=== PATIENT | female | born 1980 | race Caucasian/White ===

== ENCOUNTER → 2018-11-19 08:04 | Outpatient (CLI) | payer OTHER, MEDICAID, SELFPAY | PROVIDERS: PCP Family Medicine; Visit Provider Physician Assistant | DX: R30.0 Dysuria (principal) | CPT/HCPCS: 87077; 87086; 87186 ==

== ENCOUNTER → 2019-11-20 11:43 | Outpatient (CLI) | payer OTHER, MEDICAID, SELFPAY | PROVIDERS: PCP Family Medicine; Visit Provider Physician Assistant | DX: J02.9 Acute pharyngitis, unspecified (principal); Z20.818 Contact with and (suspected) exposure to other bacterial communicable diseases | CPT/HCPCS: 87070 ==

== ENCOUNTER 2020-08-27 17:37 | Emergency (ER) | payer OTHER, MEDICAID, SELFPAY ==
[2020-08-27 17:45] VITALS: BP 130/60; PULSE 90; RESP 16; TEMP 36.1; O2SAT 97; BMI 23.3
[2020-08-27] MEDS: IBUPROFEN 400 MG TABLET PO (18:13)
[2020-08-27] MEDS: ACETAMINOPHEN 325 MG TABLET 650 MG PO (18:13)
--- NOTE | 2020-08-27 18:37 | ED_ITS ---
HPI - Wound/Laceration <CHARLOTTE Valenzuela - Last Filed: 08/27/20 19:00> General Chief Complaint: Wound/Laceration Stated Complaint: laceration to pinky finger left hand Time Seen by Provider: 08/27/20 17:44 Source: patient Mode of arrival: Ambulatory Limitations: no limitations History of Present Illness HPI narrative: This is a 40-year-old female, smoker, who has no pertinent past medical history presents to ED with chief complain of laceration from a clean glass on left little finger on dorsal aspect which happened 20 minutes ago. Patient reports last tetanus immunization is last than 5 years ago. Patient reports severe discomfort from a laceration. She reports intact sensation and is able to flex and extend affected finger but with discomfort. 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 Related Data Previous Rx's Medication Instructions Recorded beclomethasone dipropionate [Qvar] 1 puff INH BID #1 inh 05/02/16 sumatriptan succinate [Imitrex] 50 mg PO QDAYP PRN #7 tab 07/04/16 albuterol sulfate [Ventolin HFA] 0 puff INH SEE INSTRUCTIONS PRN #1 07/28/16 inh gabapentin [Neurontin] 300 mg PO TID #90 cap 03/05/17 amoxicillin 875 mg-potassium 1 tab PO BID #20 tab 11/20/19 clavulanate 125 mg tablet benzonatate 100 mg capsule 100 mg PO BID PRN #14 cap 11/20/19 Allergies Allergy/AdvReac Type Severity Reaction Status Date / Time No Known Drug Allergies Allergy Verified 08/27/20 17:52 Review of Systems <CHARLOTTE Valenzuela - Last Filed: 08/27/20 19:00> Review of Systems Narrative: General: Denies fever, chills, fatigue, malaise, sweats. Respiratory: Denies dyspnea, cough, wheezing, hemoptysis, sputum. Cardiovascular: Denies chest pain, palpitations, orthopnea, edema. Gastrointestinal: Denies nausea, vomiting, abdominal pain, diarrhea, constipation, melena. Musculoskeletal: Denies weakness, joint pain or bony pain. Skin: See HPI Patient History <CHARLOTTE Valenzuela - Last Filed: 08/27/20 19:00> Medical History Sinusitis Surgical History Status post appendectomy Status post ovarian cystectomy Status post tubal ligation (06/20/08) Family History Child Age: 22 Asthma Environmental allergies Child Age: 18 Depression Eczema Child Age: 11 Asthma Eczema Father Age: 59 Hypertension High cholesterol Mother Age: 58 Heart disease Hypertension High cholesterol Social History Smoking Status: Current every day smoker Smoking Status: Current every day smoker alcohol intake frequency: a few times a week Substance Use Type: does not use Exam <CHARLOTTE Valenzuela - Last Filed: 08/27/20 19:00> Narrative Exam Narrative: General appearance: well developed, well nourished, in moderate distress from pain and anxious. Head: normocephalic, atraumatic, no scalp lesions, non-tender. ENT: Hearing grossly intact. Airway patent. Neck/Thyroid: neck supple, full range of motion, no visible masses or meningeal signs. No JVD, non-tender without lymphadenopathy. Skin: 1.5 cm laceration to dorsal aspect left little finger in proximal to middle phalanx. Warm and dry and appropriate color for ethnicity. Heart: no clubbing, no cyanosis, no edema. Lungs: Breathing even and unlabored. No stridor. No accessory muscles used. Able to speak in full sentences. Initial Vital Signs Initial Vital Signs: Vital Signs Temperature 97 F L 08/27/20 17:45 Pulse Rate 90 08/27/20 17:45 Respiratory Rate 16 08/27/20 17:45 Blood Pressure 130/60 08/27/20 17:45 Pulse Oximetry 97 08/27/20 17:45 Extrem Left upper extremity: hand (Little finger laceration on dorsal aspect) Details: abnormal to inspection, neuromotor exam normal, neurosensory exam normal, tendon exam normal, tenderness, vascular exam Details: radial pulse present and normal capillary refill, normal ROM of fingers, no swelling and laceration; no foreign bodies and no puncture wound <Dione Aquino DO - Last Filed: 08/28/20 00:54> Initial Vital Signs Initial Vital Signs: Vital Signs Temperature 97 F L 08/27/20 17:45 Pulse Rate 90 08/27/20 17:45 Respiratory Rate 16 08/27/20 17:45 Blood Pressure 130/60 08/27/20 17:45 Pulse Oximetry 97 08/27/20 17:45 Procedures <CHARLOTTE Valenzuela - Last Filed: 08/27/20 19:00> Laceration Repair Laceration 1: Site: hand (Finger, little) Side (If applicable): left Size (cm): 1.5 Description: linear Pre-repair: wound explored and irrigated extensively Skin layer closed with: dermabond Orthopedic Splinting/Casting Injury #1: Side: left Upper Extremity Injury Location: finger Upper Extremity Immobilizer: aluminum form splint Post splinting neuro exam: intact Post splinting vascular exam: intact Placed by: Provider Scores <CHARLOTTE Valenzuela - Last Filed: 08/27/20 19:00> GCS [place] coma scale eye opening: Spontaneous [place] coma scale verbal response: Orientated [place] coma scale motor response: Obey commands [place] coma scale total score: 15 Course <CHARLOTTE Valenzuela - Last Filed: 08/27/20 19:00> Orders Ordered: Discontinued Medications Acetaminophen (Acetaminophen 325 Mg Tablet) 650 mg PO NOW ONE Stop: 08/27/20 17:57 Last Admin: 08/27/20 18:13 Dose: 650 mg Documented by: SMILEY Bacitracin (Bacitracin Oint 0.9 Gm Pckt) 1 applic TOP NOW ONE Stop: 08/27/20 18:20 Last Admin: 08/27/20 18:25 Dose: Not Given Documented by: SMILEY Ibuprofen (Ibuprofen 400 Mg Tablet) 400 mg PO NOW ONE Stop: 08/27/20 17:57 Last Admin: 08/27/20 18:13 Dose: 400 mg Documented by: SMILEY Lidocaine/Sodium Bicarbonate (Lido 1%/Sod Bicarb 8.4% (10ml) 10 Ml Syringe) 10 ml INJ NOW ONE Stop: 08/27/20 18:20 Last Admin: 08/27/20 18:25 Dose: Not Given Documented by: SMILEY Vital Signs Vital signs: Vital Signs - 8 hr 08/27/20 17:45 Temperature 97 F L Pulse Rate 90 Respiratory Rate 16 Blood Pressure 130/60 Pulse Oximetry 97 <Dione Aquino DO - Last Filed: 08/28/20 00:54> Orders Ordered: Discontinued Medications Acetaminophen (Acetaminophen 325 Mg Tablet) 650 mg PO NOW ONE Stop: 08/27/20 17:57 Last Admin: 08/27/20 18:13 Dose: 650 mg Documented by: SMILEY Bacitracin (Bacitracin Oint 0.9 Gm Pckt) 1 applic TOP NOW ONE Stop: 08/27/20 18:20 Last Admin: 08/27/20 18:25 Dose: Not Given Documented by: SMILEY Ibuprofen (Ibuprofen 400 Mg Tablet) 400 mg PO NOW ONE Stop: 08/27/20 17:57 Last Admin: 08/27/20 18:13 Dose: 400 mg Documented by: SMILEY Lidocaine/Sodium Bicarbonate (Lido 1%/Sod Bicarb 8.4% (10ml) 10 Ml Syringe) 10 ml INJ NOW ONE Stop: 08/27/20 18:20 Last Admin: 08/27/20 18:25 Dose: Not Given Documented by: SMILEY Vital Signs Vital signs: Vital Signs - 8 hr 08/27/20 17:45 Temperature 97 F L Pulse Rate 90 Respiratory Rate 16 Blood Pressure 130/60 Pulse Oximetry 97 MDM - Wound/Laceration <CHARLOTTE Valenzuela - Last Filed: 08/27/20 19:00> Differential Diagnosis Differential diagnosis: Likely laceration Medical Records Attestation: I reviewed the patient's medical records. MDM Narrative Medical decision making narrative: Is a 40-year-old female who presents to ED with superficial laceration to left little finger in dorsal aspect measuring approximately 1.5 cm which is not deep. Patient reports last tetanus immunization last than 5 years ago. Intact sensation, cap refill, mobility distally. Patient elected to have laceration repair with Dermabond and Steri- Strips with finger splint to prevent extension and flexion since patient has severe needle phobia. Laceration has been repaired as these methods. Return precautions were discussed along wound care, laceration repair with Dermabond and Steri-Strips care and she verbalized understanding in agreement with the treatment plan. See procedural note. Discharge Plan Departure Patient Disposition: Home Clinical Impression: Finger laceration Qualifiers: Encounter type: initial encounter Finger: little finger Damage to nail status: without damage Foreign body presence: without foreign body Laterality: left Qualified Code(s): S61.217A - Laceration without foreign body of left little finger without damage to nail, initial encounter Instructions: DI for Laceration Repair-Skin Glue Activity Restrictions/Additional Instructions: You have been diagnosed with [superficial laceration dorsal aspect of left proximal to middle phalanx little finger repaired with Dermabond and Steri- Strips.]. What to do: *Take your medications as directed. You can take [id number] Tylenol and or Motrin as needed for discomfort. *Follow up with your primary care provider in 2-3 days, call for an appointment for wound recheck. Let them know you were seen in the ED and that we asked you to be seen in follow up. My Dermabond DC: Please do not get your wound soaked in the water until the laceration has healed. Keep your dressing intact for next 24 hrs. After then, you could remove your dressing, wash with soap and water. Pat dry with clean papertowel and dress it. Please avoid using oil based ointment, cream, lotion and etc since this may make dermabond lose and remove prematurely. Dermabond will come off in 5-7 days on its own. Do not peel this off or pick on it. You can change dressing as needed and daily. Please monitor for signs and symptoms for infection such as increasing redness, swelling, warmth, pain, fever, purulent discharge. If this occurs, please return to ED or follow up with your primary care physician since your wound may be infected. Please follow up with your primary care provider in 2-3 days for recheck wound. Please keep your wound clean, dry and intact all times. *Return to ED if you have any new, worsening, or concerning symptoms, such as [signs and symptoms for infection as above, chest pain, breathing difficulty, unable to tolerate fluids, severe pain or any acute concerns]. Prescriptions: No Action amoxicillin-pot clavulanate [Augmentin] 875-125 mg tablet 1 tab PO BID Qty: 20 RF: 0 benzonatate [Tessalon Perles] 100 mg capsule 100 mg PO BID PRN (Reason: cough) Qty: 14 RF: 0 beclomethasone dipropionate [Qvar] 40 MCG/PUFF aerosol 1 puff INH BID Qty: 1 RF: 3 sumatriptan succinate [Imitrex] 50 MG tablet 50 mg PO QDAYP PRNQty: 7 RF: 3 albuterol sulfate [Ventolin HFA] 90 MCG/PUFF HFA aerosol inhaler 0 puff INH SEE INSTRUCTIONS PRNQty: 1 RF: 3 gabapentin [Neurontin] 300 MG capsule 300 mg PO TID Qty: 90 RF: 3 Referrals: Beni Bravo MD [Primary Care Provider] - <Dione Aquino DO - Last Filed: 08/28/20 00:54> Cosign ED Attending Omayraature Attestation: I was immediately available in the department for consultation. Documentation has been reviewed. I agree with assessment and plan.
== END 2020-08-27 18:50 | disposition home or self-care (01) ==
PROVIDERS: Emergency Provider Nurse Practitioner Family; PCP Family Medicine
DX: S61.217A Laceration without foreign body of left little finger without damage to nail, initial encounter (principal); W25.XXXA Contact with sharp glass, initial encounter
CPT/HCPCS: 99282

== ENCOUNTER 2022-04-29 14:44 | Emergency (ER) | payer OTHER, MEDICAID, SELFPAY ==
[2022-04-29] VITALS (11 sets, daily range): BP systolic 117–138; BP diastolic 55–72; PULSE 80–115; RESP 22; TEMP 36.7; O2SAT 95–99
[2022-04-29 15:25] LABS: Add Manual Diff / Slide Review NO; Basophils Absolute Auto 100 /uL (0-100); Basophils Percent Auto 0.6 % (0-2); Eosinophils Absolute Auto 600 /uL (0-450); Eosinophils Percent Auto 4.9 % (2-4); Hematocrit 43.5 % (36-46); Hemoglobin 14.9 g/dL (12.0-16.0); Lymphocytes Absolute Auto 2000 /uL (1100-4500); Lymphocytes Percent Auto 16.6 % (25-40); Mean Corpuscular HGB Conc 34.1 % (30-36); Mean Corpuscular Hemoglobin 31.5 PG (26-34); Mean Corpuscular Volume 92.3 fL (80-100); Monocytes Absolute Auto 700 /uL (0-900); Monocytes Percent Auto 5.7 % (3-14); Neutrophils Absolute Auto 8700 /uL (1500-7000); Neutrophils Percent Auto 72.2 % (50-75); Platelet Count 322 X10^3/uL (150-400); Red Blood Cell Count 4.72 X10^6/uL (4.0-5.2); Red Cell Distribution Width 13.1 % (11.6-14.8)
[2022-04-29 15:29] LABS: Alanine Aminotransferase 16 IU/L (<35); Albumin 4.1 g/dL (3.5-5.0); Albumin Globulin Ratio 1.4 (1.0-2.8); Alkaline Phosphatase 84 U/L (38-126); Aspartate Aminotransferase 21 IU/L (14-36); BUN Creatinine Ratio 7.2 (6-22); Bilirubin Total 0.7 mg/dL (0.2-1.3); Blood Urea Nitrogen 5 mg/dL (7-17); Calcium 8.8 mg/dL (8.4-10.2); Carbon Dioxide 23 mmol/L (22-32); Chloride 109 mmol/L (98-107); Estimated Glomerular Filt Rate > 60 mL/min (>60); Globulin 2.9 g/dL (1.7-4.1); Glucose 123 mg/dL (70-100); HEMOLYSIS 28 (0-50); Lipase 35 U/L (23-300); Potassium 3.8 mmol/L (3.4-5.1); Sodium 139 mmol/L (137-145)
[2022-04-29 16:09] LABS: Bacteria Urine Many (>30); Culture Indicated Urine Specimen Cultured; RBC Urine 30-100/HPF (0-5/HPF); Squamous Epithelial Cell Urine 1-5 /HPF (0-5/HPF); WBC Urine >100/HPF (0-5/HPF)
[2022-04-29] MEDS: KETOROLAC 30 MG/ML VIAL 15 MG IV (16:17)
[2022-04-29] MEDS: SODIUM CHLORIDE 0.9% 1,000 ML 1000 ML IV ×2 (18:00→19:03)
--- NOTE | 2022-04-29 18:14 | ED_ITS ---
HPI - Abdominal Pain General Chief Complaint: Abdominal Pain Stated Complaint: Kidney Infection Time Seen by Provider: 04/29/22 18:07 Source: patient Mode of arrival: Ambulatory History of Present Illness HPI narrative: Patient is a 42-year-old female with past medical history of pyelonephritis requiring hospitalization presenting today with bilateral kidney pain more on the right left. She denies any painful or frequent urination. She says started last week she had noted however last night her pain got worse. sHe took some Tylenol/ibuprofen. She denies any nausea vomiting. She overall does not feel well. Related Data Previous Rx's Medication Instructions Recorded beclomethasone dipropionate 40 1 puff INH BID #1 inh 05/02/16 mcg/actuation aerosol inhaler (Qvar) sumatriptan succinate 50 mg tablet 50 mg PO QDAYP PRN #7 tabs 07/04/16 (Imitrex) albuterol sulfate 90 mcg/actuation 0 puff INH SEE INSTRUCTIONS PRN #1 07/28/16 aerosol inhaler (Ventolin HFA) inh gabapentin 300 mg capsule 300 mg PO TID #90 caps 03/05/17 (Neurontin) amoxicillin 875 mg-potassium 1 tab PO BID #20 tabs 11/20/19 clavulanate 125 mg tablet (Augmentin) benzonatate 100 mg capsule 100 mg PO BID PRN cough #14 caps 11/20/19 (Tessalon Perles) cephalexin 500 mg capsule 500 mg PO TID #21 caps 04/29/22 Allergies Allergy/AdvReac Type Severity Reaction Status Date / Time No Known Drug Allergies Allergy Verified 08/27/20 17:52 Review of Systems Review of Systems Narrative: GENERAL: Denies chills, fatigue, malaise, fever, sweats, travel HEENT: Denies sinus pain, ear pain, sore throat, difficulty swallowing, neck pain RESPIRATORY: Denies dyspnea, cough, wheezing, hemoptysis, sputum. CARDIOVASCULAR: Denies chest pain, palpitations, orthopnea, edema GASTROINTESTINAL: Denies nausea, vomiting, abdominal pain, diarrhea, con stipation, melena. : See HPI MUSCULOSKELETAL: Denies weakness, joint pain, or bony pain SKIN: No rash, no erythema, no pruritus NEUROLOGIC: Denies weakness, dizziness, headache, numbness, change in speech, confusion PSYCHIATRIC: No concerning psychosocial issues. 12 point review of systems is negative except for those stated above and HPI Patient History Medical History Sinusitis Surgical History Status post appendectomy Status post ovarian cystectomy Status post tubal ligation (06/20/08) Family History Child Age: 23 Asthma Environmental allergies Child Age: 19 Depression Eczema Child Age: 12 Asthma Eczema Father Age: 60 Hypertension High cholesterol Mother Age: 59 Heart disease Hypertension High cholesterol Social History Smoking Status: Current every day smoker Smoking Status: Current every day smoker alcohol intake frequency: a few times a week Substance Use Type: does not use Exam Initial Vital Signs Initial Vital Signs: Vital Signs Temperature 98.1 F 04/29/22 15:00 Pulse Rate 115 H 04/29/22 15:00 Respiratory Rate 22 04/29/22 15:00 Blood Pressure 127/59 L 04/29/22 15:00 Pulse Oximetry 99 04/29/22 15:00 Oxygen Delivery Method 04/29/22 15:00 GENERAL: Alert 42-year-old female appears to not feel well and in no acute distress. HEENT: Head atraumatic,EOMI, pupils reactive, face symmetric, moist mucous membranes CARDIOVASCULAR: Regular rate and rhythm without murmurs, rubs or gallops. RESPIRATORY: Breath sounds equal bilaterally, no wheezes rales or rhonchi. ABDOMEN: Soft, nontender. Normoactive bowel sounds all 4 quadrants. No guarding or rebound. : Bilateral CVA tenderness right more than left EXTREMITIES: Normal range of motion, no clubbing or edema. Neurovascularly intact NEUROLOGICAL: Alert and oriented x4.Normal gait and speech. SKIN: Warm, dry, no laceration, no petechiae, no rashes or lesions. Course Orders Ordered: ED Orders 04/29/22 18:16 Lactate (Lactic Acid) Stat Procalcitonin Stat 04/29/22 18:22 Blood Culture Stat Discontinued Medications Hydrocodone Bitart/Acetaminophen (Hydrocodone/Acet 5/325 Prepack) 1 bottle MISC SEEINSTR ONE Stop: 04/29/22 20:34 Last Admin: 04/29/22 20:41 Dose: 1 bottle Documented By: TEMI Diphenhydramine HCl (Diphenhydramine 50 Mg/Ml Vial) 25 mg IV NOW ONE Stop: 04/29/22 19:47 Last Admin: 04/29/22 19:50 Dose: 25 mg Documented By: TEMI Sodium Chloride (Normal Saline 0.9%) 1,000 mls @ 1,000 mls/hr IV BOLUS ONE Stop: 04/29/22 18:58 Last Infusion: 04/29/22 19:04 Dose: 0 mls/hr Documented By: Infusion: 04/29/22 18:17 Dose: 0 mls/hr Documented By: Admin: 04/29/22 18:00 Dose: 1,000 mls/hr Documented By: ROQUE Ceftriaxone Sodium 2,000 mg/ (Sodium Chloride) 100 mls @ 200 mls/hr IV NOW ONE Stop: 04/29/22 18:15 Last Infusion: 04/29/22 19:57 Dose: 0 mls/hr Documented By: Admin: 04/29/22 19:04 Dose: 200 mls/hr Documented By: TEMI Sodium Chloride (Normal Saline 0.9%) 1,000 mls @ 1,000 mls/hr IV BOLUS ONE Stop: 04/29/22 19:13 Last Infusion: 04/29/22 20:53 Dose: 0 mls/hr Documented By: Admin: 04/29/22 19:03 Dose: 1,000 mls/hr Documented By: TEMI Ketorolac Tromethamine (Ketorolac 30 Mg/Ml Vial) 15 mg IV NOW ONE Stop: 04/29/22 16:12 Last Admin: 04/29/22 16:17 Dose: 15 mg Documented By: CHIKIS Morphine Sulfate (Morphine 2 Mg/Ml Inj) 2 mg IV NOW ONE Stop: 04/29/22 18:15 Last Admin: 04/29/22 19:04 Dose: 2 mg Documented By: TEMI Vital Signs Vital signs: Vital Signs - 8 hr 04/29/22 19:00 04/29/22 19:01 04/29/22 19:01 Pulse Rate 89 89 Blood Pressure 119/57 L Pulse Oximetry 97 97 04/29/22 19:30 04/29/22 20:00 04/29/22 20:30 Pulse Rate 86 80 83 Blood Pressure Pulse Oximetry 97 96 98 04/29/22 20:40 04/29/22 20:40 Pulse Rate 80 Blood Pressure 117/55 L Pulse Oximetry 99 MDM - Abdominal Pain Lab Data Result diagrams: 04/29/22 15:10 04/29/22 15:10 Labs: Lab Results 04/29/22 04/29/22 04/29/22 Range/Units 15:10 15:10 15:45 WBC 12.0 H (4.5-11.0) X10^3/uL RBC 4.72 (4.0-5.2) X10^6/uL Hgb 14.9 (12.0-16.0) g/dL Hct 43.5 (36-46) % MCV 92.3 (80-100) fL MCH 31.5 (26-34) PG MCHC 34.1 (30-36) % RDW 13.1 (11.6-14.8) % Plt Count 322 (150-400) X10^3/uL Neut % (Auto) 72.2 (50-75) % Lymph % (Auto) 16.6 L (25-40) % [place] % (Auto) 5.7 (3-14) % Eos % (Auto) 4.9 H (2-4) % Baso % (Auto) 0.6 (0-2) % Neut # (Auto) 8700 H (6095-2660) /uL Lymph # (Auto) 2000 (4468-2527) /uL [place] # (Auto) 700 (0-900) /uL Eos # (Auto) 600 H (0-450) /uL Baso # (Auto) 100 (0-100) /uL Sodium 139 (137-145) mmol/L Potassium 3.8 (3.4-5.1) mmol/L Chloride 109 H (98-107) mmol/L Carbon Dioxide 23 (22-32) mmol/L BUN 5 L (7-17) mg/dL Creatinine 0.69 (0.52-1.04) mg/dL Estimated GFR > 60 (>60) mL/min BUN/Creatinine Ratio 7.2 (6-22) Glucose 123 H (70-100) mg/dL Lactate (0.7-2.1) mmol/L Calcium 8.8 (8.4-10.2) mg/dL Total Bilirubin 0.7 (0.2-1.3) mg/dL AST 21 (14-36) IU/L ALT 16 (<35) IU/L Alkaline Phosphatase 84 (38-126) U/L Total Protein 7.0 (6.3-8.2) g/dL Albumin 4.1 (3.5-5.0) g/dL Globulin 2.9 (1.7-4.1) g/dL Albumin/Globulin Ratio 1.4 (1.0-2.8) Lipase 35 (23-300) U/L Procalcitonin (<0.5) ng/mL Urine RBC 30-100/hpf H (0-5/HPF) Urine WBC >100/hpf H (0-5/HPF) Ur Squamous Epith Cells 1-5 /hpf (0-5/HPF) Urine Bacteria Many (>30) H (None) Ur Culture Indicated? Specimen cultured 04/29/22 04/29/22 Range/Units 18:16 18:16 WBC (4.5-11.0) X10^3/uL RBC (4.0-5.2) X10^6/uL Hgb (12.0-16.0) g/dL Hct (36-46) % MCV (80-100) fL MCH (26-34) PG MCHC (30-36) % RDW (11.6-14.8) % Plt Count (150-400) X10^3/uL Neut % (Auto) (50-75) % Lymph % (Auto) (25-40) % [place] % (Auto) (3-14) % Eos % (Auto) (2-4) % Baso % (Auto) (0-2) % Neut # (Auto) (9223-7544) /uL Lymph # (Auto) (4971-4741) /uL [place] # (Auto) (0-900) /uL Eos # (Auto) (0-450) /uL Baso # (Auto) (0-100) /uL Sodium (137-145) mmol/L Potassium (3.4-5.1) mmol/L Chloride (98-107) mmol/L Carbon Dioxide (22-32) mmol/L BUN (7-17) mg/dL Creatinine (0.52-1.04) mg/dL Estimated GFR (>60) mL/min BUN/Creatinine Ratio (6-22) Glucose (70-100) mg/dL Lactate 0.8 (0.7-2.1) mmol/L Calcium (8.4-10.2) mg/dL Total Bilirubin (0.2-1.3) mg/dL AST (14-36) IU/L ALT (<35) IU/L Alkaline Phosphatase (38-126) U/L Total Protein (6.3-8.2) g/dL Albumin (3.5-5.0) g/dL Globulin (1.7-4.1) g/dL Albumin/Globulin Ratio (1.0-2.8) Lipase (23-300) U/L Procalcitonin 0.12 (<0.5) ng/mL Urine RBC (0-5/HPF) Urine WBC (0-5/HPF) Ur Squamous Epith Cells (0-5/HPF) Urine Bacteria (None) Ur Culture Indicated? Point of care testing: Urine Dip Bedside Urine Glucose Negative Bedside Urine Bilirubin - Negative Bedside Urine Ketone - Negative Urine Specific [place] 1.020 Bedside Urine Occult Blood +++ Bedside Urine pH 6.0 Bedside Urine Protein ++ 100 Bedside Urine Urobilinogen 2+ 4mg Bedside Urine Nitrite + Positive Bedside Urine Leukocytes ++ 125 Esterase MDM Narrative Medical decision making narrative: Patient has quite foul smelling urine. She previously had pyelonephritis requiring hospitalization. The last culture that we have is from 2019 and was in sensitive to penicillins but sensitive to cephalosporins. She has is no sign ificant lactic acid or elevated procalcitonin. At this time I do not see a need for CT. She does not need to stay in the hospital she is given a dose of Rocephin here in the ED and IV fluids. Overall feeling much better. She is happy to go home with oral antibiotics. Discharge Plan Departure Patient Disposition: Home Clinical Impression: Pyelonephritis Activity Restrictions/Additional Instructions: *You have been diagnosed with kidney infection *What to do: At this time her blood work does look like you have an infection. However it is reasonable free to go home with antibiotics. However we may call you in a few days to change up your antibiotics depending on what her culture shows *Continue to take medications as directed -->SAFEWAY IN [employer]NAC[employer] Keflex 500 mg 3 times a day for 7 days Ibuprofen 600 mg every 6-8 hours if needed for [id number] [place] 1 tablet every 6 hours if needed for severe pain *Follow up with your primary care provider in 2-3 days or call [phone] *Return to ER if you should have increasing pain fever vomiting or any new, worsening or concerning symptoms CONTROLLED SUBSTANCE DISCHARGE (Narcotoic/benzodiazepine/Flexeril/Phenergan) 1. You have been prescribed narcotic medications, it does have acetaminophen/Tylenol/paracetamol in it, DO NOT TAKE MORE THAN 4,00mg in 24 hours of Tylenol. TRAMADOL DOES NOT CONTAIN TYLENOL 2. Please understand that we cannot provide further refills of narcotics, benzodiazepines or controlled substances through the ED and her pain management will need to be through your provider. 3. While on these medications you cannot drive or operate heavy machinery. 4. You cannot sign legal documents or perform any duties such as this. 5. As long as you're taking opiate pain medications he should also be taking a stool softener such as Colace, Dulcolax, MiraLAX or prune juice, to help avoid constipation. Prescriptions: New cephalexin 500 mg capsule 500 mg PO TID Qty: 21 0RF No Action amoxicillin-pot clavulanate [Augmentin] 875-125 mg tablet 1 tab PO BID Qty: 20 0RF benzonatate [Tessalon Perles] 100 mg capsule 100 mg PO BID PRN (Reason: cough) Qty: 14 0RF beclomethasone dipropionate [Qvar] 40 MCG/PUFF aerosol 1 puff INH BID Qty: 1 3RF sumatriptan succinate [Imitrex] 50 MG tablet 50 mg PO QDAYP PRNQty: 7 3RF albuterol sulfate [Ventolin HFA] 90 MCG/PUFF HFA aerosol inhaler 0 puff INH SEE INSTRUCTIONS PRNQty: 1 3RF gabapentin [Neurontin] 300 MG capsule 300 mg PO TID Qty: 90 3RF Referrals: Beni Bravo MD [Primary Care Provider] - Stand Alone Forms: Work Release Note Visit Report Forms: Patient Portal/API
[2022-04-29 18:44] LABS: Lactate (Lactic Acid) 0.8 mmol/L (0.7-2.1)
[2022-04-29 19:01] LABS: Procalcitonin 0.12 ng/mL (<0.5)
[2022-04-29] MEDS: cefTRIAXone 2,000 MG in SODIUM CHLORIDE 0.9% 100 ML 200 MG IV (19:04)
[2022-04-29] MEDS: MORPHINE 2 MG/ML INJ IV (19:04)
[2022-04-29] MEDS: diphenhydrAMINE 50 MG/ML VIAL 25 MG IV (19:50)
[2022-04-29] MEDS: HYDROCODONE/ACET 5/325 PREPACK 1 BOTTLE MISC (20:41)
== END 2022-04-29 20:53 | disposition home or self-care (01) ==
PROVIDERS: Family Medicine Addiction Medicine; Emergency Provider Emergency Medicine; PCP Family Medicine
DX: N12 Tubulo-interstitial nephritis, not specified as acute or chronic (principal)
CPT/HCPCS: 36415; 80053; 81003; 81015; 83605; 83690; 84145; 85025; 87040; 87077; 87086; 87186; 96365; 96375; 99284; J0696; J1200; J1885; J2270

== ENCOUNTER 2022-11-29 12:05 | Emergency (ER) | payer OTHER, MEDICAID, SELFPAY ==
[2022-11-29 12:20] VITALS: BP 129/83; PULSE 117; RESP 18; TEMP 36.8; O2SAT 100; BMI 22.6
--- NOTE | 2022-11-29 12:25 | DI.RAD.S_ITS ---
PROCEDURE: XR CHEST 1V INDICATIONS: suspected sepsis/ GUM ABCESS TECHNIQUE: One view of the chest was acquired. COMPARISON: [facility], CHEST 2 VIEW, 08/23/2015, 9:46. [facility], , CHEST 2 VIEW, 06/10/2013, 14:11. FINDINGS: Surgical changes and devices: None. Lungs and pleura: Lungs are clear. No pleural effusions or pneumothorax. Mediastinum: Mediastinal contours appear normal. Heart size is normal. Bones and chest wall: No suspicious bony lesions. Overlying soft tissues appear unremarkable. IMPRESSION: No acute cardiopulmonary process. Dictated by: Paramjit Silverman M.D. on 11/29/2022 at 13:01 Approved by: Paramjit Silverman M.D. on 11/29/2022 at 13:01
[2022-11-29] MEDS: ONDANSETRON 4 MG/2 ML INJ IV (12:41)
[2022-11-29] MEDS: SODIUM CHLORIDE 0.9% 1,000 ML 1000 ML IV (12:41)
[2022-11-29 12:51] LABS: Add Manual Diff / Slide Review NO; Basophils Absolute Auto 100 /uL (0-100); Basophils Percent Auto 0.6 % (0-2); Eosinophils Absolute Auto 600 /uL (0-450); Eosinophils Percent Auto 6.8 % (2-4); Hematocrit 46.6 % (36-46); Hemoglobin 15.2 g/dL (12.0-16.0); Lymphocytes Absolute Auto 2400 /uL (1100-4500); Lymphocytes Percent Auto 26.7 % (25-40); Mean Corpuscular HGB Conc 32.7 % (30-36); Mean Corpuscular Hemoglobin 30.2 PG (26-34); Mean Corpuscular Volume 92.4 fL (80-100); Monocytes Absolute Auto 400 /uL (0-900); Monocytes Percent Auto 4.5 % (3-14); Neutrophils Absolute Auto 5400 /uL (1500-7000); Neutrophils Percent Auto 61.4 % (50-75); Platelet Count 358 X10^3/uL (150-400); Red Blood Cell Count 5.04 X10^6/uL (4.0-5.2); Red Cell Distribution Width 12.9 % (11.6-14.8); White Blood Cell Count 8.8 X10^3/uL (4.5-11.0)
[2022-11-29 13:04] LABS: INR 1.1 (0.9-1.3); Prothrombin Time 12.5 SECONDS (10.1-12.7)
[2022-11-29 13:06] LABS: PTT Partial Thromboplastin Tim 38 SECONDS (26-36)
[2022-11-29 13:10] LABS: Alanine Aminotransferase 23 IU/L (<35); Albumin 4.3 g/dL (3.5-5.0); Albumin Globulin Ratio 1.4 (1.0-2.8); Alkaline Phosphatase 78 U/L (38-126); Aspartate Aminotransferase 25 IU/L (14-36); BUN Creatinine Ratio 12.2 (6-22); Bilirubin Total 0.5 mg/dL (0.2-1.3); Blood Urea Nitrogen 9 mg/dL (7-17); Calcium 8.9 mg/dL (8.4-10.2); Carbon Dioxide 21 mmol/L (22-32); Chloride 105 mmol/L (98-107); Estimated Glomerular Filt Rate > 60 mL/min (>60); Globulin 3.1 g/dL (1.7-4.1); Glucose 152 mg/dL (70-100); HEMOLYSIS < 15 (0-50); Lipase 54 U/L (23-300); Potassium 4.3 mmol/L (3.4-5.1); Sodium 137 mmol/L (137-145); Total Protein 7.4 g/dL (6.3-8.2)
[2022-11-29 13:27] LABS: Procalcitonin 0.06 ng/mL (<0.5)
--- NOTE | 2022-11-29 13:50 | ED_ITS ---
HPI - Dental/Oral <Steve Rosado PA-C - Last Filed: 11/29/22 18:34> General Chief complaint: Dental/Oral Stated complaint: Infection in mouth Time Seen by Provider: 11/29/22 13:35 Source: patient Mode of arrival: Ambulatory History of Present Illness HPI Narrative: This is a 42-year-old female presents to the emergency department due to a right upper dental infection. She has a history of dentures and states that she occasionally gets ?bone shards?. She states she is been wearing her dentures for the last week and has developed a worsening bone shard with pain erythema and swelling. Denies any difficulty breathing or swallowing. Denies any fevers but states that she does have some nausea. States that it is difficult to eat as it causes her pain. Related Data Previous Rx's Medication Instructions Recorded beclomethasone dipropionate 40 1 puff INH BID #1 inh 05/02/16 mcg/actuation aerosol inhaler (Qvar) sumatriptan succinate 50 mg tablet 50 mg PO QDAYP PRN #7 tabs 07/04/16 (Imitrex) albuterol sulfate 90 mcg/actuation 0 puff INH SEE INSTRUCTIONS PRN #1 07/28/16 aerosol inhaler (Ventolin HFA) inh gabapentin 300 mg capsule 300 mg PO TID #90 caps 03/05/17 (Neurontin) amoxicillin 875 mg-potassium 1 tab PO BID #20 tabs 11/20/19 clavulanate 125 mg tablet (Augmentin) benzonatate 100 mg capsule 100 mg PO BID PRN cough #14 caps 11/20/19 (Tessalon Perles) cephalexin 500 mg capsule 500 mg PO TID #21 caps 04/29/22 hydrocodone 5 mg-acetaminophen 325 1 tab PO BEDTIME PRN pain #10 tabs 11/29/22 mg tablet metronidazole 500 mg tablet 500 mg PO TID 7 days #21 tabs 11/29/22 nystatin 100,000 unit/mL oral 1 ml PO DAILY #60 mL 11/29/22 suspension penicillin V potassium 250 mg 250 mg PO QID 10 days #40 tabs 11/29/22 tablet Allergies Allergy/AdvReac Type Severity Reaction Status Date / Time No Known Drug Allergies Allergy Verified 08/27/20 17:52 Review of Systems <Steve Rosado PA-C - Last Filed: 11/29/22 18:34> Review of Systems Narrative: GENERAL: Denies chills, fatigue, malaise, fever, sweats. HEENT: Right-sided dental pain RESPIRATORY: Denies dyspnea, cough, wheezing, hemoptysis, sputum. CARDIOVASCULAR: Denies chest pain, palpitations, orthopnea, edema, GASTROINTESTINAL: Denies nausea, vomiting, abdominal pain, diarrhea, constipation, melena. : Denies dysuria, frequency, incontinence, hematuria, urinary retention. MUSCULOSKELETAL: denies weakness, joint pain, or bony pain SKIN: Denies rash, skin lesions, or other NEUROLOGIC: Denies weakness, headache, numbness, change in speech, confusion, seizures, incoordination. PSYCHIATRIC: No concerning psychosocial issues. 12 point review of systems is negative except for those stated above Patient History <Steve Rosado PA-C - Last Filed: 11/29/22 18:34> Medical History Sinusitis Surgical History Status post appendectomy Status post ovarian cystectomy Status post tubal ligation (06/20/08) Family History Child Age: 23 Asthma Environmental allergies Child Age: 19 Depression Eczema Child Age: 12 Asthma Eczema Father Age: 60 Hypertension High cholesterol Mother Age: 59 Heart disease Hypertension High cholesterol Social History Smoking Status: Current every day smoker Smoking Status: Current every day smoker tobacco type: cigarettes alcohol intake frequency: 0-2 drinks per day Alcohol type: hard liquor Substance Use Type: does not use Exam <Steve Rosado PA-C - Last Filed: 11/29/22 18:34> Narrative Exam Narrative: GENERAL: Well-developed patient, in mild distress. HEAD: Atraumatic. Normocephalic. EYES: Pupils equal round and reactive. Extraocular motions intact. No scleral icterus. No injection or drainage. ENT: Evidence of bone coming through the right upper gums with some surrounding erythema. No evidence of abscess or fluctuant area surrounding the evident bone.. Throat without erythema, tonsillar hypertrophy or exudate. Airway patent. NECK: Trachea midline. Non tender CARDIOVASCULAR: Regular rate and rhythm without murmurs, gallops, or rubs. RESPIRATORY: Clear to auscultation. Breath sounds equal bilaterally. No wheezes, rales, or rhonchi. GASTROINTESTINAL: Abdomen soft, non-tender, nondistended. EXTREMITIES: No edema or joint tenderness. BACK: Nontender without deformity or crepitance. No flank tenderness. NEURO: AOx3. SKIN: No rash or erythema of visible areas Initial Vital Signs Initial Vital Signs: Vital Signs Temperature 98.2 F 11/29/22 12:20 Pulse Rate 117 H 11/29/22 12:20 Respiratory Rate 18 11/29/22 12:20 Blood Pressure 129/83 11/29/22 12:20 Pulse Oximetry 100 11/29/22 12:20 Oxygen Delivery Method Room Air 11/29/22 12:20 <Meghana Owens DO - Last Filed: 11/30/22 14:28> Initial Vital Signs Initial Vital Signs: Vital Signs Temperature 98.2 F 11/29/22 12:20 Pulse Rate 117 H 11/29/22 12:20 Respiratory Rate 18 11/29/22 12:20 Blood Pressure 129/83 11/29/22 12:20 Pulse Oximetry 100 11/29/22 12:20 Oxygen Delivery Method Room Air 11/29/22 12:20 Course <Steve Rosado PA-C - Last Filed: 11/29/22 18:34> Orders Ordered: Discontinued Medications Sodium Chloride (Normal Saline 0.9%) 1,000 mls @ 1,000 mls/hr IV BOLUS ONE Stop: 11/29/22 13:24 Last Infusion: 11/29/22 14:58 Dose: 0 mls/hr Documented By: Admin: 11/29/22 12:41 Dose: 1,000 mls/hr Documented By: ROQUE Ketorolac Tromethamine (Ketorolac 30 Mg/Ml Vial) 15 mg IV NOW ONE Stop: 11/29/22 14:38 Last Admin: 11/29/22 14:44 Dose: 15 mg Documented By: OFELIA Ondansetron HCl (Ondansetron 4 Mg Odt) 4 mg SL NOW PRN PRN Reason: Nausea And Vomiting Ondansetron HCl (Ondansetron 4 Mg/2 Ml Inj) 4 mg IV NOW PRN PRN Reason: Nausea And Vomiting Last Admin: 11/29/22 12:41 Dose: 4 mg Documented By: ROQUE Vital Signs Vital signs: Vital Signs - 8 hr 11/29/22 12:20 11/29/22 14:51 11/29/22 16:08 Temperature 98.2 F 98.2 F Pulse Rate 117 H 91 H 90 Respiratory Rate 18 18 Blood Pressure 129/83 125/61 118/57 L Pulse Oximetry 100 99 98 Oxygen Delivery Method Room Air Room Air Room Air <Meghana Owens DO - Last Filed: 11/30/22 14:28> Orders Ordered: Discontinued Medications Sodium Chloride (Normal Saline 0.9%) 1,000 mls @ 1,000 mls/hr IV BOLUS ONE Stop: 11/29/22 13:24 Last Infusion: 11/29/22 14:58 Dose: 0 mls/hr Documented By: Admin: 11/29/22 12:41 Dose: 1,000 mls/hr Documented By: ROQUE Ketorolac Tromethamine (Ketorolac 30 Mg/Ml Vial) 15 mg IV NOW ONE Stop: 11/29/22 14:38 Last Admin: 11/29/22 14:44 Dose: 15 mg Documented By: OFELIA Ondansetron HCl (Ondansetron 4 Mg Odt) 4 mg SL NOW PRN PRN Reason: Nausea And Vomiting Ondansetron HCl (Ondansetron 4 Mg/2 Ml Inj) 4 mg IV NOW PRN PRN Reason: Nausea And Vomiting Last Admin: 11/29/22 12:41 Dose: 4 mg Documented By: ROQUE Vital Signs Vital signs: Vital Signs - 8 hr 11/29/22 12:20 11/29/22 14:51 11/29/22 16:08 Temperature 98.2 F 98.2 F Pulse Rate 117 H 91 H 90 Respiratory Rate 18 18 Blood Pressure 129/83 125/61 118/57 L Pulse Oximetry 100 99 98 Oxygen Delivery Method Room Air Room Air Room Air MDM - Dental/Oral <Steve Rosado PA-C - Last Filed: 11/29/22 18:34> Lab Data 11/29/22 12:30 11/29/22 12:30 Labs: Lab Results 11/29/22 11/29/22 11/29/22 Range/Units 12:30 12:30 12:30 WBC 8.8 (4.5-11.0) X10^3/uL RBC 5.04 (4.0-5.2) X10^6/uL Hgb 15.2 (12.0-16.0) g/dL Hct 46.6 H (36-46) % MCV 92.4 (80-100) fL MCH 30.2 (26-34) PG MCHC 32.7 (30-36) % RDW 12.9 (11.6-14.8) % Plt Count 358 (150-400) X10^3/uL Neut % (Auto) 61.4 (50-75) % Lymph % (Auto) 26.7 (25-40) % [place] % (Auto) 4.5 (3-14) % Eos % (Auto) 6.8 H (2-4) % Baso % (Auto) 0.6 (0-2) % Neut # (Auto) 5400 (3341-5274) /uL Lymph # (Auto) 2400 (9966-4077) /uL [place] # (Auto) 400 (0-900) /uL Eos # (Auto) 600 H (0-450) /uL Baso # (Auto) 100 (0-100) /uL PT 12.5 (10.1-12.7) SECONDS INR 1.1 (0.9-1.3) APTT 38 H (26-36) SECONDS Sodium 137 (137-145) mmol/L Potassium 4.3 (3.4-5.1) mmol/L Chloride 105 (98-107) mmol/L Carbon Dioxide 21 L (22-32) mmol/L BUN 9 (7-17) mg/dL Creatinine 0.74 (0.52-1.04) mg/dL Estimated GFR > 60 (>60) mL/min BUN/Creatinine Ratio 12.2 (6-22) Glucose 152 H (70-100) mg/dL Lactate (0.7-2.1) mmol/L Calcium 8.9 (8.4-10.2) mg/dL Total Bilirubin 0.5 (0.2-1.3) mg/dL AST 25 (14-36) IU/L ALT 23 (<35) IU/L Alkaline Phosphatase 78 (38-126) U/L Total Protein 7.4 (6.3-8.2) g/dL Albumin 4.3 (3.5-5.0) g/dL Globulin 3.1 (1.7-4.1) g/dL Albumin/Globulin Ratio 1.4 (1.0-2.8) Lipase 54 (23-300) U/L Procalcitonin 0.06 (<0.5) ng/mL 11/29/22 11/29/22 Range/Units 12:30 15:06 WBC (4.5-11.0) X10^3/uL RBC (4.0-5.2) X10^6/uL Hgb (12.0-16.0) g/dL Hct (36-46) % MCV (80-100) fL MCH (26-34) PG MCHC (30-36) % RDW (11.6-14.8) % Plt Count (150-400) X10^3/uL Neut % (Auto) (50-75) % Lymph % (Auto) (25-40) % [place] % (Auto) (3-14) % Eos % (Auto) (2-4) % Baso % (Auto) (0-2) % Neut # (Auto) (4834-7470) /uL Lymph # (Auto) (5714-9037) /uL [place] # (Auto) (0-900) /uL Eos # (Auto) (0-450) /uL Baso # (Auto) (0-100) /uL PT (10.1-12.7) SECONDS INR (0.9-1.3) APTT (26-36) SECONDS Sodium (137-145) mmol/L Potassium (3.4-5.1) mmol/L Chloride (98-107) mmol/L Carbon Dioxide (22-32) mmol/L BUN (7-17) mg/dL Creatinine (0.52-1.04) mg/dL Estimated GFR (>60) mL/min BUN/Creatinine Ratio (6-22) Glucose (70-100) mg/dL Lactate 3.0 H 1.1 (0.7-2.1) mmol/L Calcium (8.4-10.2) mg/dL Total Bilirubin (0.2-1.3) mg/dL AST (14-36) IU/L ALT (<35) IU/L Alkaline Phosphatase (38-126) U/L Total Protein (6.3-8.2) g/dL Albumin (3.5-5.0) g/dL Globulin (1.7-4.1) g/dL Albumin/Globulin Ratio (1.0-2.8) Lipase (23-300) U/L Procalcitonin (<0.5) ng/mL Imaging Data CT scan - head: Radiologist's Impression: [address] [address] [address] Scan Report Signed Patient: Niraj Cuadra MR#: [id number] : 1980 Acct:[id number] Age/Sex: 42 / F Date of Service: 11/29/22 Loc: ED Accession Number: [id number] ?? Procedure: CT facial bones w con Ordering Provider: Steve Rosado P.A-C PROCEDURE:? CT FACIAL BONES W CON ? INDICATIONS:? R upper gum infection w/ possible bone exposure ? TECHNIQUE:? After the administration of intravenous contrast, 2.5 mm axial sections acquired from the mid-neck to the frontal sinuses, with coronal and sagittal reformats.? For radiation dose reduction, the following was used:? automated exposure control, adjustment of mA and/or kV according to patient size.? ? COMPARISON:? None. ? FINDINGS:? Image quality:? Excellent.? ? Soft tissues:? No edema, masses, or fluid collections.? No enlarged lymph no driss.? ? Vascular:? Visualized vascular structures appear patent throughout.? Bony vascular foramina and canals appear normal.? ? Bones:? Facial bones appear intact, without fractures, erosions, or driss truction.? Visualized portions of the skull base and auditory canals also appear normal.? ? Sinuses:? Paranasal sinuses are aerated without fluid levels, mucosal thickening, or mucoceles.? Mastoid air cells are aerated.? ? IMPRESSION:? No visualized definitive areas of inflammatory change or focal f luid collection.? No bony erosions. ? ? Dictated by: Suzanne Soto M.D. on 11/29/2022 at 15:20 ? ? Approved by: Suzanne Soto M.D. on 11/29/2022 at 15:21 ? MDM Narrative Medical decision making narrative: MDM * differential diagnosis includes but not limited to soft tissue infection, osteomyelitis, abscess * Prior records reviewed: Patient's history of pyelonephritis that was requiring hospitalization previously. Patient was seen last year due to a UTI like symptoms. She was discharged home with oral antibiotics. * My lab interpretation: No evidence of leukocytosis but have lactate of 3. * My imgaing interpretation: CT showed no evidence of abscess or bone infection the maxillofacial area * Clinical Decision Rules/Scores evaluated: None * Independent discussions with: None ED Course: This is a 42-year-old female presents to the emergency department due to reported ?bone shards? coming through her right gums. On exam this seemed to be apparent. Patient had normal labs the lactate of 3. Do this lactate decision to order a CT maxillofacial was ordered. There was no evidence of bone infection or abscess on CT. Patient will be discharged with oral antibiotics as well as instructions for proper denture cleaning. Shared Decision Making: Discussed plan with patient and was comfortable with this plan. Social Considerations: None Disposition: Discharged to home <Meghana Owens, - Last Filed: 11/30/22 14:28> Lab Data Labs: Lab Results 11/29/22 11/29/22 11/29/22 Range/Units 12:30 12:30 12:30 WBC 8.8 (4.5-11.0) X10^3/uL RBC 5.04 (4.0-5.2) X10^6/uL Hgb 15.2 (12.0-16.0) g/dL Hct 46.6 H (36-46) % MCV 92.4 (80-100) fL MCH 30.2 (26-34) PG MCHC 32.7 (30-36) % RDW 12.9 (11.6-14.8) % Plt Count 358 (150-400) X10^3/uL Neut % (Auto) 61.4 (50-75) % Lymph % (Auto) 26.7 (25-40) % [place] % (Auto) 4.5 (3-14) % Eos % (Auto) 6.8 H (2-4) % Baso % (Auto) 0.6 (0-2) % Neut # (Auto) 5400 (3709-8093) /uL Lymph # (Auto) 2400 (3397-9582) /uL [place] # (Auto) 400 (0-900) /uL Eos # (Auto) 600 H (0-450) /uL Baso # (Auto) 100 (0-100) /uL PT 12.5 (10.1-12.7) SECONDS INR 1.1 (0.9-1.3) APTT 38 H (26-36) SECONDS Sodium 137 (137-145) mmol/L Potassium 4.3 (3.4-5.1) mmol/L Chloride 105 (98-107) mmol/L Carbon Dioxide 21 L (22-32) mmol/L BUN 9 (7-17) mg/dL Creatinine 0.74 (0.52-1.04) mg/dL Estimated GFR > 60 (>60) mL/min BUN/Creatinine Ratio 12.2 (6-22) Glucose 152 H (70-100) mg/dL Lactate (0.7-2.1) mmol/L Calcium 8.9 (8.4-10.2) mg/dL Total Bilirubin 0.5 (0.2-1.3) mg/dL AST 25 (14-36) IU/L ALT 23 (<35) IU/L Alkaline Phosphatase 78 (38-126) U/L Total Protein 7.4 (6.3-8.2) g/dL Albumin 4.3 (3.5-5.0) g/dL Globulin 3.1 (1.7-4.1) g/dL Albumin/Globulin Ratio 1.4 (1.0-2.8) Lipase 54 (23-300) U/L Procalcitonin 0.06 (<0.5) ng/mL 11/29/22 11/29/22 Range/Units 12:30 15:06 WBC (4.5-11.0) X10^3/uL RBC (4.0-5.2) X10^6/uL Hgb (12.0-16.0) g/dL Hct (36-46) % MCV (80-100) fL MCH (26-34) PG MCHC (30-36) % RDW (11.6-14.8) % Plt Count (150-400) X10^3/uL Neut % (Auto) (50-75) % Lymph % (Auto) (25-40) % [place] % (Auto) (3-14) % Eos % (Auto) (2-4) % Baso % (Auto) (0-2) % Neut # (Auto) (2756-2039) /uL Lymph # (Auto) (5085-9194) /uL [place] # (Auto) (0-900) /uL Eos # (Auto) (0-450) /uL Baso # (Auto) (0-100) /uL PT (10.1-12.7) SECONDS INR (0.9-1.3) APTT (26-36) SECONDS Sodium (137-145) mmol/L Potassium (3.4-5.1) mmol/L Chloride (98-107) mmol/L Carbon Dioxide (22-32) mmol/L BUN (7-17) mg/dL Creatinine (0.52-1.04) mg/dL Estimated GFR (>60) mL/min BUN/Creatinine Ratio (6-22) Glucose (70-100) mg/dL Lactate 3.0 H 1.1 (0.7-2.1) mmol/L Calcium (8.4-10.2) mg/dL Total Bilirubin (0.2-1.3) mg/dL AST (14-36) IU/L ALT (<35) IU/L Alkaline Phosphatase (38-126) U/L Total Protein (6.3-8.2) g/dL Albumin (3.5-5.0) g/dL Globulin (1.7-4.1) g/dL Albumin/Globulin Ratio (1.0-2.8) Lipase (23-300) U/L Procalcitonin (<0.5) ng/mL Discharge Plan Departure Patient Disposition: Home Clinical Impression: Bacterial oral infection Activity Restrictions/Additional Instructions: Thank you for coming to the [facility] Emergency Department today. The CT showed no evidence of any kind of bone infection or deeper abscess or soft tissu e infection. Please take the oral antibiotics as prescribed. You may also use the nystatin mouthwash to help avoid any other infections. Please merge to clean your dentures as we discussed. I hope you feel better soon. Prescriptions: New penicillin V potassium 250 mg tablet 250 mg PO QID 10 Days Qty: 40 0RF nystatin 100,000 unit/mL suspension 1 ml PO DAILY Qty: 60 0RF Rx Instructions: swish and swallow metronidazole 500 mg tablet 500 mg PO TID 7 Days Qty: 21 0RF hydrocodone-acetaminophen 5-325 mg tablet 1 tab PO BEDTIME PRN (Reason: pain) Qty: 10 0RF No Action amoxicillin-pot clavulanate [Augmentin] 875-125 mg tablet 1 tab PO BID Qty: 20 0RF benzonatate [Tessalon Perles] 100 mg capsule 100 mg PO BID PRN (Reason: cough) Qty: 14 0RF beclomethasone dipropionate [Qvar] 40 MCG/PUFF aerosol 1 puff INH BID Qty: 1 3RF sumatriptan succinate [Imitrex] 50 MG tablet 50 mg PO QDAYP PRNQty: 7 3RF albuterol sulfate [Ventolin HFA] 90 MCG/PUFF HFA aerosol inhaler 0 puff INH SEE INSTRUCTIONS PRNQty: 1 3RF gabapentin [Neurontin] 300 MG capsule 300 mg PO TID Qty: 90 3RF cephalexin 500 mg capsule 500 mg PO TID Qty: 21 0RF Referrals: Beni Bravo MD [Primary Care Provider] - Stand Alone Forms: Patient Portal/API <Meghana Owens, - Last Filed: 11/30/22 14:28> Cosign ED Attending Laverne Attestation: I was immediately available in the department for consultation. Documentation has been reviewed. Case was discussed.
--- NOTE | 2022-11-29 13:57 | DI.CT.S_ITS ---
PROCEDURE: CT FACIAL BONES W CON INDICATIONS: R upper gum infection w/ possible bone exposure TECHNIQUE: After the administration of intravenous contrast, 2.5 mm axial sections acquired from the mid-neck to the frontal sinuses, with coronal and sagittal reformats. For radiation dose reduction, the following was used: automated exposure control, adjustment of mA and/or kV according to patient size. COMPARISON: None. FINDINGS: Image quality: Excellent. Soft tissues: No edema, masses, or fluid collections. No enlarged lymph nodes. Vascular: Visualized vascular structures appear patent throughout. Bony vascular foramina and canals appear normal. Bones: Facial bones appear intact, without fractures, erosions, or destruction. Visualized portions of the skull base and auditory canals also appear normal. Sinuses: Paranasal sinuses are aerated without fluid levels, mucosal thickening, or mucoceles. Mastoid air cells are aerated. IMPRESSION: No visualized definitive areas of inflammatory change or focal fluid collection. No bony erosions. Dictated by: Suzanne Soto M.D. on 11/29/2022 at 15:20 Approved by: Suzanne Soto M.D. on 11/29/2022 at 15:21
[2022-11-29] MEDS: KETOROLAC 30 MG/ML VIAL 15 MG IV (14:44)
[2022-11-29 14:45] LABS: Reflexed Lactate in 2 Hours Y
[2022-11-29 14:51] VITALS: BP 125/61; PULSE 91; O2SAT 99
[2022-11-29 15:47] LABS: Lactate 2HR (Lactic Acid Rflx) 1.1 mmol/L (0.7-2.1)
[2022-11-29 16:08] VITALS: BP 118/57; PULSE 90; RESP 18; TEMP 36.8; O2SAT 98
== END 2022-11-29 16:08 | disposition home or self-care (01) ==
PROVIDERS: Emergency Medicine; Emergency Provider Physician Assistant Medical; PCP Family Medicine
DX: K12.1 Other forms of stomatitis (principal); R79.89 Other specified abnormal findings of blood chemistry
CPT/HCPCS: 36415; 70487; 71045; 80053; 83605; 83690; 84145; 85025; 85610; 85730; 87040; 96361; 96374; 96375; 99284; J1885; J2405; Q9967

== ENCOUNTER 2022-12-05 22:26 | Emergency (ER) | payer OTHER, MEDICAID, SELFPAY ==
[2022-12-05 22:41] VITALS: BP 130/74; PULSE 118; RESP 20; TEMP 37.2; O2SAT 99; BMI 22.6
--- NOTE | 2022-12-05 23:18 | ED.DENTAL ---
HPI - Dental/Oral General Chief complaint: Fever Stated complaint: fever, mouth pain Time Seen by Provider: 12/05/22 23:16 Source: patient Mode of arrival: Ambulatory History of Present Illness HPI Narrative: Patient is a 42-year-old female history of migraines presenting today with variety of symptoms. She reports that she has had mouth infection that developed under her dentures in her gum no eroded into her bone. She was seen evaluated here on 11/29/2022. At that time she had blood work and a CT scan and was discharged home on Augmentin. She reports that she is taking the antibiotic but feels like she is having increasing pain especially if she does not stand top of Tylenol and ibuprofen. She also reports feeling fatigued and sometimes she feels short of breath and she is to remind herself to take a deep breath. She also has vague chest discomfort. She denies any swelling of her face no difficulty swallowing or breathing. Related Data Previous Rx's Medication Instructions Recorded beclomethasone dipropionate 40 1 puff INH BID #1 inh 05/02/16 mcg/actuation aerosol inhaler (Qvar) sumatriptan succinate 50 mg tablet 50 mg PO QDAYP PRN #7 tabs 07/04/16 (Imitrex) albuterol sulfate 90 mcg/actuation 0 puff INH SEE INSTRUCTIONS PRN #1 07/28/16 aerosol inhaler (Ventolin HFA) inh gabapentin 300 mg capsule 300 mg PO TID #90 caps 03/05/17 (Neurontin) amoxicillin 875 mg-potassium 1 tab PO BID #20 tabs 11/20/19 clavulanate 125 mg tablet (Augmentin) benzonatate 100 mg capsule 100 mg PO BID PRN cough #14 caps 11/20/19 (Tessalon Perles) cephalexin 500 mg capsule 500 mg PO TID #21 caps 04/29/22 hydrocodone 5 mg-acetaminophen 325 1 tab PO BEDTIME PRN pain #10 tabs 11/29/22 mg tablet metronidazole 500 mg tablet 500 mg PO TID 7 days #21 tabs 11/29/22 nystatin 100,000 unit/mL oral 1 ml PO DAILY #60 mL 11/29/22 suspension penicillin V potassium 250 mg 250 mg PO QID 10 days #40 tabs 11/29/22 tablet Allergies Allergy/AdvReac Type Severity Reaction Status Date / Time No Known Drug Allergies Allergy Verified 08/27/20 17:52 Review of Systems Review of Systems ROS Unobtainable: All systems reviewed & are unremarkable except as noted in HPI and below Patient History Medical History Sinusitis Surgical History Status post appendectomy Status post ovarian cystectomy Status post tubal ligation (06/20/08) Family History Child Age: 24 Asthma Environmental allergies Child Age: 20 Depression Eczema Child Age: 13 Asthma Eczema Father Age: 61 Hypertension High cholesterol Mother Age: 60 Heart disease Hypertension High cholesterol Social History Smoking Status: Current every day smoker Smoking Status: Current every day smoker tobacco type: cigarettes alcohol intake frequency: 0-2 drinks per day Alcohol type: hard liquor Substance Use Type: does not use Exam Initial Vital Signs Initial Vital Signs: Vital Signs Temperature 98.9 F 12/05/22 22:41 Pulse Rate 118 H 12/05/22 22:41 Respiratory Rate 20 12/05/22 22:41 Blood Pressure 130/74 12/05/22 22:41 Pulse Oximetry 99 12/05/22 22:41 Oxygen Delivery Method Room Air 12/05/22 22:41 GENERAL: Alert slightly anxious 42-year-old female HEENT: Head atraumatic,EOMI, pupils reactive, face symmetric, moist mucous membranes Mouth: Sore right upper gum wound is still present no gross discharge CARDIOVASCULAR: Mildly tachycardic regular no murmurs RESPIRATORY: Breath sounds equal bilaterally, no wheezes rales or rhonchi. No conversational dyspnea ABDOMEN: Soft, nontender. Normoactive bowel sounds all 4 quadrants. No guarding or rebound. EXTREMITIES: Normal range of motion, no clubbing or edema. Neurovascularly intact NEUROLOGICAL: Alert and oriented x4 SKIN: Warm, dry, no laceration, no petechiae, no rashes or lesions. Course Orders Ordered: ED Orders 12/05/22 23:45 Chest [XR chest 1V] Stat EKG-12 Lead Stat 12/05/22 23:55 CBC Auto Diff [Complete Blood Count AUTO DIFF] Stat CMP [Comprehensive Metabolic Panel] Stat D Dimer Stat Lactate (Lactic Acid) Stat Troponin & CK Cardiac Panel Stat 12/06/22 EKG-12 Lead Routine 12/06/22 00:05 Covid-19 + FLU A/B + RSV - PCR Stat Vital Signs Vital signs: Vital Signs - 8 hr 12/05/22 22:41 12/06/22 01:43 Temperature 98.9 F 98 F Pulse Rate 118 H 80 Respiratory Rate 20 18 Blood Pressure 130/74 134/78 Pulse Oximetry 99 99 Oxygen Delivery Method Room Air Room Air MDM - Dental/Oral Lab Data 12/05/22 23:55 12/05/22 23:55 Labs: Lab Results 12/05/22 12/05/22 12/05/22 Range/Units 23:55 23:55 23:55 WBC 10.9 (4.5-11.0) X10^3/uL RBC 4.41 (4.0-5.2) X10^6/uL Hgb 13.6 (12.0-16.0) g/dL Hct 39.6 (36-46) % MCV 89.7 (80-100) fL MCH 30.8 (26-34) PG MCHC 34.3 (30-36) % RDW 12.8 (11.6-14.8) % Plt Count 355 (150-400) X10^3/uL Neut % (Auto) 60.7 (50-75) % Lymph % (Auto) 26.5 (25-40) % [place] % (Auto) 6.3 (3-14) % Eos % (Auto) 5.7 H (2-4) % Baso % (Auto) 0.8 (0-2) % Neut # (Auto) 6600 (7338-9976) /uL Lymph # (Auto) 2900 (2592-8951) /uL [place] # (Auto) 700 (0-900) /uL Eos # (Auto) 600 H (0-450) /uL Baso # (Auto) 100 (0-100) /uL D-Dimer 227 (<500) ng/ml Sodium 137 (137-145) mmol/L Potassium 3.9 (3.4-5.1) mmol/L Chloride 107 (98-107) mmol/L Carbon Dioxide 24 (22-32) mmol/L BUN 10 (7-17) mg/dL Creatinine 0.75 (0.52-1.04) mg/dL Estimated GFR > 60 (>60) mL/min BUN/Creatinine Ratio 13.3 (6-22) Glucose 127 H (70-100) mg/dL Lactate (0.7-2.1) mmol/L Calcium 8.4 (8.4-10.2) mg/dL Total Bilirubin 0.2 (0.2-1.3) mg/dL AST 27 (14-36) IU/L ALT 27 (<35) IU/L Alkaline Phosphatase 130 H D (38-126) U/L Total Creatine Kinase 62 (30-135) U/L CK-MB (CK-2) TNP CK-MB (CK-2) Rel Index TNP Troponin I < 0.012 (0.01-0.034) ng/mL Total Protein 6.4 (6.3-8.2) g/dL Albumin 3.7 (3.5-5.0) g/dL Globulin 2.7 (1.7-4.1) g/dL Albumin/Globulin Ratio 1.4 (1.0-2.8) SARS-CoV-2 (PCR) (Negative) Influenza A (RT-PCR) (NEGATIVE) Influenza B (RT-PCR) (NEGATIVE) RSV (PCR) (Negative) 12/05/22 12/06/22 Range/Units 23:55 00:05 WBC (4.5-11.0) X10^3/uL RBC (4.0-5.2) X10^6/uL Hgb (12.0-16.0) g/dL Hct (36-46) % MCV (80-100) fL MCH (26-34) PG MCHC (30-36) % RDW (11.6-14.8) % Plt Count (150-400) X10^3/uL Neut % (Auto) (50-75) % Lymph % (Auto) (25-40) % [place] % (Auto) (3-14) % Eos % (Auto) (2-4) % Baso % (Auto) (0-2) % Neut # (Auto) (9498-3216) /uL Lymph # (Auto) (6796-1380) /uL [place] # (Auto) (0-900) /uL Eos # (Auto) (0-450) /uL Baso # (Auto) (0-100) /uL D-Dimer (<500) ng/ml Sodium (137-145) mmol/L Potassium (3.4-5.1) mmol/L Chloride (98-107) mmol/L Carbon Dioxide (22-32) mmol/L BUN (7-17) mg/dL Creatinine (0.52-1.04) mg/dL Estimated GFR (>60) mL/min BUN/Creatinine Ratio (6-22) Glucose (70-100) mg/dL Lactate 1.6 (0.7-2.1) mmol/L Calcium (8.4-10.2) mg/dL Total Bilirubin (0.2-1.3) mg/dL AST (14-36) IU/L ALT (<35) IU/L Alkaline Phosphatase (38-126) U/L Total Creatine Kinase (30-135) U/L CK-MB (CK-2) CK-MB (CK-2) Rel Index Troponin I (0.01-0.034) ng/mL Total Protein (6.3-8.2) g/dL Albumin (3.5-5.0) g/dL Globulin (1.7-4.1) g/dL Albumin/Globulin Ratio (1.0-2.8) SARS-CoV-2 (PCR) Negative (Negative) Influenza A (RT-PCR) Flu a negative (NEGATIVE) Influenza B (RT-PCR) Flu b negative (NEGATIVE) RSV (PCR) Negative (Negative) Imaging Data Chest x-ray: Radiologist's Impression: PROCEDURE:? XR CHEST 1V ? INDICATIONS:? sob ? TECHNIQUE:? One view of the chest was acquired.? ? COMPARISON:? [facility], CR, XR CHEST 1V, 11/29/2022, 12:36. ? FINDINGS:? ? Surgical changes and devices:? None.? ? Lungs and pleura:? Lungs are clear.? No pleural effusions or pneumothorax.? ? Mediastinum:? Mediastinal contours appear normal.? Heart size is normal.? ? Bones and chest wall:? No suspicious bony lesions.? Overlying soft tissues appear unremarkable.? ? IMPRESSION:? ? 1.? No acute cardiopulmonary disease. ? ? ? Dictated by: Keshav Damon M.D. on 12/06/2022 at 1:18 ? ? ECG Data Interpretation: Sinus rhythm rate 97 AK interval 118 QRS [address] changes no T-wave inversions MDM Narrative Medical decision making narrative: Patient 42-year-old female who presents today with variety of symptoms. She reports that she still having pain slurring in her mouth she continues to be on antibiotics she has some fatigue and random shortness of breath. Workup is overall reassuring. No significant leukocytosis, no electrolyte abnormality TY chest x-ray is also negative. D-dimer was checked for shortness of breath and tachycardia is negative. At this time I see no need for CT angio. At this time I recommend patient finish her antibiotics, and follow-up with dentist or oral surgeon. Her face does not have any significant swelling or erythema. Discharge Plan Departure Patient Disposition: Home Clinical Impression: Bacterial oral infection Instructions: DI for Shortness of Breath Activity Restrictions/Additional Instructions: *You have been diagnosed with shortness of breath mouth infection *What to do: At this time please keep taking her antibiotics. Your x-ray is negative, viral panel also negative. I do recommend you see a dentist or oral surgeon to help monitor this wound *Continue to take medications as directed *Follow up with your primary care provider in 2-3 days or call [phone] *Return to ER if you should have increasing shortness of breath chest pain facial swelling redness difficulty swallowing or any new, worsening or concerning symptoms Prescriptions: No Action amoxicillin-pot clavulanate [Augmentin] 875-125 mg tablet 1 tab PO BID Qty: 20 0RF benzonatate [Tessalon Perles] 100 mg capsule 100 mg PO BID PRN (Reason: cough) Qty: 14 0RF beclomethasone dipropionate [Qvar] 40 MCG/PUFF aerosol 1 puff INH BID Qty: 1 3RF sumatriptan succinate [Imitrex] 50 MG tablet 50 mg PO QDAYP PRNQty: 7 3RF albuterol sulfate [Ventolin HFA] 90 MCG/PUFF HFA aerosol inhaler 0 puff INH SEE INSTRUCTIONS PRNQty: 1 3RF gabapentin [Neurontin] 300 MG capsule 300 mg PO TID Qty: 90 3RF cephalexin 500 mg capsule 500 mg PO TID Qty: 21 0RF penicillin V potassium 250 mg tablet 250 mg PO QID 10 Days Qty: 40 0RF nystatin 100,000 unit/mL suspension 1 ml PO DAILY Qty: 60 0RF Rx Instructions: swish and swallow metronidazole 500 mg tablet 500 mg PO TID 7 Days Qty: 21 0RF hydrocodone-acetaminophen 5-325 mg tablet 1 tab PO BEDTIME PRN (Reason: pain) Qty: 10 0RF Referrals: Beni Bravo MD [Primary Care Provider] - Stand Alone Forms: Patient Portal/API
--- NOTE | 2022-12-05 23:45 | DI.RAD.S_ITS ---
PROCEDURE: XR CHEST 1V INDICATIONS: sob TECHNIQUE: One view of the chest was acquired. COMPARISON: [facility], CR, XR CHEST 1V, 11/29/2022, 12:36. FINDINGS: Surgical changes and devices: None. Lungs and pleura: Lungs are clear. No pleural effusions or pneumothorax. Mediastinum: Mediastinal contours appear normal. Heart size is normal. Bones and chest wall: No suspicious bony lesions. Overlying soft tissues appear unremarkable. IMPRESSION: 1. No acute cardiopulmonary disease. Dictated by: Keshav Damon M.D. on 12/06/2022 at 1:18 Approved by: Keshav Damon M.D. on 12/06/2022 at 1:18
[2022-12-06 00:18] LABS: Add Manual Diff / Slide Review NO; Basophils Absolute Auto 100 /uL (0-100); Basophils Percent Auto 0.8 % (0-2); Eosinophils Absolute Auto 600 /uL (0-450); Eosinophils Percent Auto 5.7 % (2-4); Hematocrit 39.6 % (36-46); Hemoglobin 13.6 g/dL (12.0-16.0); Lymphocytes Absolute Auto 2900 /uL (1100-4500); Lymphocytes Percent Auto 26.5 % (25-40); Mean Corpuscular HGB Conc 34.3 % (30-36); Mean Corpuscular Hemoglobin 30.8 PG (26-34); Mean Corpuscular Volume 89.7 fL (80-100); Monocytes Absolute Auto 700 /uL (0-900); Monocytes Percent Auto 6.3 % (3-14); Neutrophils Absolute Auto 6600 /uL (1500-7000); Neutrophils Percent Auto 60.7 % (50-75); Platelet Count 355 X10^3/uL (150-400); Red Blood Cell Count 4.41 X10^6/uL (4.0-5.2); Red Cell Distribution Width 12.8 % (11.6-14.8); White Blood Cell Count 10.9 X10^3/uL (4.5-11.0)
[2022-12-06 00:22] LABS: D Dimer 227 ng/ml (<500)
[2022-12-06 00:23] LABS: Lactate (Lactic Acid) 1.6 mmol/L (0.7-2.1)
[2022-12-06 00:25] LABS: Alanine Aminotransferase 27 IU/L (<35); Albumin 3.7 g/dL (3.5-5.0); Albumin Globulin Ratio 1.4 (1.0-2.8); Alkaline Phosphatase 130 U/L (38-126); Aspartate Aminotransferase 27 IU/L (14-36); BUN Creatinine Ratio 13.3 (6-22); Bilirubin Total 0.2 mg/dL (0.2-1.3); Blood Urea Nitrogen 10 mg/dL (7-17); Calcium 8.4 mg/dL (8.4-10.2); Carbon Dioxide 24 mmol/L (22-32); Chloride 107 mmol/L (98-107); Creatine Kinase 62 U/L (30-135); Estimated Glomerular Filt Rate > 60 mL/min (>60); Globulin 2.7 g/dL (1.7-4.1); Glucose 127 mg/dL (70-100); HEMOLYSIS < 15 (0-50); Potassium 3.9 mmol/L (3.4-5.1); Sodium 137 mmol/L (137-145); Total Protein 6.4 g/dL (6.3-8.2)
[2022-12-06 00:36] LABS: Troponin I < 0.012 ng/mL (0.01-0.034)
[2022-12-06 00:47] LABS: Influenza A - CEPHEID Flu A NEGATIVE (NEGATIVE); Influenza B - CEPHEID Flu B NEGATIVE (NEGATIVE); Respiratory Syncytial Virus Negative (Negative)
[2022-12-06 00:55] LABS: COVID-19 CEPHEID 4-PLEX PCR Negative (Negative)
[2022-12-06 01:43] VITALS: BP 134/78; PULSE 80; RESP 18; TEMP 36.6; O2SAT 99
== END 2022-12-06 01:46 | disposition home or self-care (01) ==
PROVIDERS: Emergency Provider Emergency Medicine; PCP Family Medicine
DX: K12.1 Other forms of stomatitis (principal); R06.02 Shortness of breath; R47.81 Slurred speech; Z20.822 Contact with and (suspected) exposure to COVID-19
CPT/HCPCS: 0241U; 36415; 71045; 80053; 82550; 83605; 84484; 85025; 85379; 93005; 93010; 99283; 99284

== ENCOUNTER 2023-07-21 18:10 | Emergency (ER) | payer SELFPAY ==
[2023-07-21] VITALS (9 sets, daily range): BP systolic 115–142; BP diastolic 58–72; PULSE 72–97; RESP 18; TEMP 36.9; O2SAT 96–99
[2023-07-21 18:33] LABS: Add Manual Diff / Slide Review NO; Basophils Absolute Auto 100 /uL (0-100); Eosinophils Absolute Auto 500 /uL (0-450); Eosinophils Percent Auto 5.7 % (2-4); Hematocrit 42.5 % (36-46); Hemoglobin 14.5 g/dL (12.0-16.0); Lymphocytes Absolute Auto 3000 /uL (1100-4500); Lymphocytes Percent Auto 31.6 % (25-40); Mean Corpuscular HGB Conc 34.1 % (30-36); Mean Corpuscular Hemoglobin 30.9 PG (26-34); Mean Corpuscular Volume 90.7 fL (80-100); Monocytes Absolute Auto 500 /uL (0-900); Monocytes Percent Auto 4.7 % (3-14); Neutrophils Absolute Auto 5500 /uL (1500-7000); Platelet Count 315 X10^3/uL (150-400); Red Blood Cell Count 4.68 X10^6/uL (4.0-5.2); Red Cell Distribution Width 13.4 % (11.6-14.8); White Blood Cell Count 9.6 X10^3/uL (4.5-11.0)
[2023-07-21 18:41] LABS: Albumin 4.4 g/dL (3.5-5.0); Albumin Globulin Ratio 1.6 (1.0-2.8); Alkaline Phosphatase 67 U/L (38-126); Aspartate Aminotransferase 27 IU/L (14-36); BUN Creatinine Ratio 24.6 (6-22); Bilirubin Total 0.3 mg/dL (0.2-1.3); Blood Urea Nitrogen 15 mg/dL (7-17); Calcium 9.6 mg/dL (8.4-10.2); Carbon Dioxide 24 mmol/L (22-32); Chloride 103 mmol/L (98-107); Estimated Glomerular Filt Rate > 60 mL/min (>60); Globulin 2.8 g/dL (1.7-4.1); Glucose 108 mg/dL (70-100); HEMOLYSIS 33 (0-50); Lipase 92 U/L (23-300); Potassium 4.7 mmol/L (3.4-5.1); Sodium 136 mmol/L (137-145); Total Protein 7.2 g/dL (6.3-8.2)
[2023-07-21 19:10] LABS: Alanine Aminotransferase 20 IU/L (<35)
[2023-07-21] MEDS: KETOROLAC 30 MG/ML VIAL IM (19:16)
[2023-07-21 19:19] LABS: Bacteria Urine Many (>30); Culture Indicated Urine Specimen Cultured; RBC Urine 0-1/HPF (0-5/HPF); Squamous Epithelial Cell Urine 0-1 /HPF (0-5/HPF); WBC Urine 0-1/HPF (0-5/HPF)
--- NOTE | 2023-07-21 20:15 | ED_ITS ---
HPI - Female Genitourinary General Chief complaint: Urogenital-Female Stated complaint: kidney pain Time Seen by Provider: 07/21/23 20:08 Source: patient Mode of arrival: Ambulatory History of Present Illness HPI Narrative: Patient 43-year-old with history of kidney infections presenting today with what she thinks is a kidney infection she is some right flank pain she is had some body aches. She is had them since she was little. She thought she was just getting upper respiratory infection but then started having back pain. She reports she is a history of E coli she denies any known resistance. According to records she did have a coli in April 2022 resistant to ampicillin and Augmentin but sensitive to everything else. No fever chills was feeling nauseated. Related Data Previous Rx's Medication Instructions Recorded beclomethasone dipropionate 40 1 puff INH BID #1 inh 05/02/16 mcg/actuation aerosol inhaler (Qvar) sumatriptan succinate 50 mg tablet 50 mg PO QDAYP PRN #7 tabs 07/04/16 (Imitrex) albuterol sulfate 90 mcg/actuation 0 puff INH SEE INSTRUCTIONS PRN #1 07/28/16 aerosol inhaler (Ventolin HFA) inh gabapentin 300 mg capsule 300 mg PO TID #90 caps 03/05/17 (Neurontin) amoxicillin 875 mg-potassium 1 tab PO BID #20 tabs 11/20/19 clavulanate 125 mg tablet (Augmentin) benzonatate 100 mg capsule 100 mg PO BID PRN cough #14 caps 11/20/19 (Tessalon Perles) cephalexin 500 mg capsule 500 mg PO TID #21 caps 04/29/22 hydrocodone 5 mg-acetaminophen 325 1 tab PO BEDTIME PRN pain #10 tabs 11/29/22 mg tablet nystatin 100,000 unit/mL oral 1 ml PO DAILY #60 mL 11/29/22 suspension cephalexin 500 mg capsule 500 mg PO BID 7 days #14 caps 07/21/23 Allergies Allergy/AdvReac Type Severity Reaction Status Date / Time No Known Drug Allergies Allergy Verified 07/21/23 18:14 Patient History Medical History Sinusitis Surgical History Status post appendectomy Status post ovarian cystectomy Status post tubal ligation (06/20/08) Family History Child Age: 24 Asthma Environmental allergies Child Age: 20 Depression Eczema Child Age: 13 Asthma Eczema Father Age: 61 Hypertension High cholesterol Mother Age: 60 Heart disease Hypertension High cholesterol tobacco type: cigarettes alcohol intake frequency: 0-2 drinks per day Alcohol type: hard liquor Substance Use Type: does not use Exam Initial Vital Signs Initial Vital Signs: Vital Signs Temperature 98.4 F 07/21/23 18:14 Pulse Rate 97 H 07/21/23 18:14 Respiratory Rate 18 07/21/23 18:14 Blood Pressure 118/72 07/21/23 18:14 Pulse Oximetry 99 07/21/23 18:14 Oxygen Delivery Method Room Air 07/21/23 18:14 GENERAL: Alert pleasant 43-year-old female and in no acute distress. HEENT: Head atraumatic,EOMI, pupils reactive, face symmetric, moist mucous membranes CARDIOVASCULAR: Regular rate and rhythm without murmurs, rubs or gallops. RESPIRATORY: Breath sounds equal bilaterally, no wheezes rales or rhonchi. ABDOMEN: Soft, nontender. Normoactive bowel sounds all 4 quadrants. No guarding or rebound. : Mild right CVA tenderness EXTREMITIES: Normal range of motion, no clubbing or edema. Neurovascularly intact NEUROLOGICAL: Alert and oriented x4.Normal gait and speech. SKIN: Warm, dry, no laceration, no petechiae, no rashes or lesions. Course Orders Ordered: ED Orders 07/21/23 18:25 Complete Blood Count AUTO DIFF Stat Comprehensive Metabolic Panel Stat Lipase Stat Urine Culture Stat Urine Microscopic Stat Discontinued Medications Ceftriaxone Sodium 1,000 mg/ (Sodium Chloride) 100 mls @ 200 mls/hr IV NOW ONE Stop: 07/21/23 20:21 Last Infusion: 07/21/23 21:17 Dose: Infused Documented By: Admin: 07/21/23 20:28 Dose: 200 mls/hr Documented By: Sodium Chloride (Normal Saline 0.9%) 1,000 mls @ 1,000 mls/hr IV BOLUS ONE Stop: 07/21/23 21:19 Last Infusion: 07/21/23 21:17 Dose: Infused Documented By: Admin: 07/21/23 20:28 Dose: 1,000 mls/hr Documented By: Ketorolac Tromethamine (Ketorolac 30 Mg/Ml Vial) 15 mg IV NOW ONE Stop: 07/21/23 19:02 Last Admin: 07/21/23 19:14 Dose: Not Given Documented By: Ketorolac Tromethamine (Ketorolac 30 Mg/Ml Vial) 30 mg IM NOW ONE Stop: 07/21/23 19:14 Last Admin: 07/21/23 19:16 Dose: 30 mg Documented By: SB Ondansetron HCl (Ondansetron 4 Mg Odt) 4 mg PO NOW PRN PRN Reason: Nausea And Vomiting Ondansetron HCl (Ondansetron 4 Mg/2 Ml Inj) 4 mg IV NOW PRN PRN Reason: Nausea And Vomiting Vital Signs Vital signs: Vital Signs - 8 hr 07/21/23 18:14 07/21/23 18:58 07/21/23 19:00 Temperature 98.4 F Pulse Rate 97 H 80 81 Respiratory Rate 18 Blood Pressure 118/72 Pulse Oximetry 99 97 97 Oxygen Delivery Method Room Air 07/21/23 19:23 07/21/23 19:24 07/21/23 19:24 Temperature Pulse Rate 80 79 Respiratory Rate Blood Pressure 142/63 H Pulse Oximetry 96 97 Oxygen Delivery Method 07/21/23 19:30 07/21/23 19:30 07/21/23 20:00 Temperature Pulse Rate 75 Respiratory Rate Blood Pressure 116/58 L 117/60 Pulse Oximetry 96 Oxygen Delivery Method 07/21/23 20:00 07/21/23 20:30 07/21/23 20:30 Temperature Pulse Rate 72 90 Respiratory Rate Blood Pressure 115/62 Pulse Oximetry 97 97 Oxygen Delivery Method 07/21/23 21:00 07/21/23 21:00 Temperature Pulse Rate 76 Respiratory Rate Blood Pressure 119/64 Pulse Oximetry 97 Oxygen Delivery Method MDM - Female Genitourinary Lab Data 07/21/23 18:25 07/21/23 18:25 Labs: Lab Results 07/21/23 Range/Units 18:25 WBC 9.6 (4.5-11.0) X10^3/uL RBC 4.68 (4.0-5.2) X10^6/uL Hgb 14.5 (12.0-16.0) g/dL Hct 42.5 (36-46) % MCV 90.7 (80-100) fL MCH 30.9 (26-34) PG MCHC 34.1 (30-36) % RDW 13.4 (11.6-14.8) % Plt Count 315 (150-400) X10^3/uL Neut % (Auto) 57.0 (50-75) % Lymph % (Auto) 31.6 (25-40) % [place] % (Auto) 4.7 (3-14) % Eos % (Auto) 5.7 H (2-4) % Baso % (Auto) 1.0 (0-2) % Neut # (Auto) 5500 (0178-4262) /uL Lymph # (Auto) 3000 (9382-3652) /uL [place] # (Auto) 500 (0-900) /uL Eos # (Auto) 500 H (0-450) /uL Baso # (Auto) 100 (0-100) /uL Sodium 136 L (137-145) mmol/L Potassium 4.7 (3.4-5.1) mmol/L Chloride 103 (98-107) mmol/L Carbon Dioxide 24 (22-32) mmol/L BUN 15 (7-17) mg/dL Creatinine 0.61 (0.52-1.04) mg/dL Estimated GFR > 60 (>60) mL/min BUN/Creatinine Ratio 24.6 H (6-22) Glucose 108 H (70-100) mg/dL Calcium 9.6 (8.4-10.2) mg/dL Total Bilirubin 0.3 (0.2-1.3) mg/dL AST 27 (14-36) IU/L ALT 20 (<35) IU/L Alkaline Phosphatase 67 (38-126) U/L Total Protein 7.2 (6.3-8.2) g/dL Albumin 4.4 (3.5-5.0) g/dL Globulin 2.8 (1.7-4.1) g/dL Albumin/Globulin Ratio 1.6 (1.0-2.8) Lipase 92 (23-300) U/L Urine RBC 0-1/hpf D (0-5/HPF) Urine WBC 0-1/hpf (0-5/HPF) Ur Squamous Epith Cells 0-1 /hpf (0-5/HPF) Urine Bacteria Many (>30) H (None) Ur Culture Indicated? Specimen cultured Urine Dip Bedside Urine Glucose Negative Bedside Urine Bilirubin - Negative Bedside Urine Ketone - Negative Urine Specific [place] 1.030 Bedside Urine Occult Blood - Negative Bedside Urine pH 6.0 Bedside Urine Protein - Negative Bedside Urine Urobilinogen - Negative Bedside Urine Nitrite + Positive Bedside Urine Leukocytes - Negative Esterase MDM Narrative Medical decision making narrative: Patient 43-year-old female history of pyelonephritis, presenting today with symptoms similar. She does have nitrates in her urine tender right flank. Abdomen is soft. She is afebrile not tachycardic or hypotensive no evidence of sepsis. Blood work has been reviewed she is no evidence of TY I or leukocytosis. She is given a dose of Rocephin and IV fluids along with Toradol which has helped some. At this time with a soft abdomen no need for CT. Symptoms are not consistent with stone. Discharge Plan Departure Patient Disposition: Home Clinical Impression: Kidney infection Instructions: DI for Kidney Infection Activity Restrictions/Additional Instructions: *You have been diagnosed with kidney infection *What to do: At this time increase fluids as tolerated you do have an infection you were given 1 dose of IV antibiotics here please start antibiotics tomorrow *Continue to take medications as directed Keflex 500 mg twice a day for 7 days--> SAFEWAY *Follow up with your primary care provider in 2-3 days or call [phone] *Return to ER if you should have increasing pain fever not tolerating fluids or any new, worsening or concerning symptoms Prescriptions: New cephalexin 500 mg capsule 500 mg PO BID 7 Days Qty: 14 0RF No Action amoxicillin-pot clavulanate [Augmentin] 875-125 mg tablet 1 tab PO BID Qty: 20 0RF benzonatate [Tessalon Perles] 100 mg capsule 100 mg PO BID PRN (Reason: cough) Qty: 14 0RF beclomethasone dipropionate [Qvar] 40 MCG/PUFF aerosol 1 puff INH BID Qty: 1 3RF sumatriptan succinate [Imitrex] 50 MG tablet 50 mg PO QDAYP PRNQty: 7 3RF albuterol sulfate [Ventolin HFA] 90 MCG/PUFF HFA aerosol inhaler 0 puff INH SEE INSTRUCTIONS PRNQty: 1 3RF gabapentin [Neurontin] 300 MG capsule 300 mg PO TID Qty: 90 3RF cephalexin 500 mg capsule 500 mg PO TID Qty: 21 0RF nystatin 100,000 unit/mL suspension 1 ml PO DAILY Qty: 60 0RF Rx Instructions: swish and swallow hydrocodone-acetaminophen 5-325 mg tablet 1 tab PO BEDTIME PRN (Reason: pain) Qty: 10 0RF Referrals: Beni Bravo MD [Primary Care Provider] - Stand Alone Forms: Patient Portal/API
[2023-07-21] MEDS: SODIUM CHLORIDE 0.9% 1,000 ML 1000 ML IV (20:28)
[2023-07-21] MEDS: cefTRIAXone 1,000 MG in SODIUM CHLORIDE 0.9% 100 ML 200 MG IV (20:28)
== END 2023-07-21 21:18 | disposition home or self-care (01) ==
PROVIDERS: Emergency Provider Emergency Medicine; PCP Family Medicine
DX: N15.9 Renal tubulo-interstitial disease, unspecified (principal)
CPT/HCPCS: 36415; 80053; 81003; 81015; 83690; 85025; 87077; 87086; 87186; 96365; 96372; 99284; J0696; J1885